=== PATIENT | male | born 1965 | race Two or more races ===

== ENCOUNTER 2022-09-21 06:37 | Inpatient (IN) | payer MEDICAID, OTHER ==
[~2022-09-21] VITALS: Ht 157.5 cm; Wt 626.0 kg
--- NOTE | 2022-09-21 06:41 | NUR ---
[id number] FROM [facility] FOR [facility] THE [facility]S. VENT DEPENDENT CAME IN ON BVM SATTING 100%. PATIENT NON VERBAL, PLACED IN BED 08 ON MONITOR AND POX. RT CALLED, MADE AWARE.
--- NOTE | 2022-09-21 06:53 | NUR ---
RT AT BEDSIDE
--- NOTE | 2022-09-21 06:54 | NUR ---
COVID SWAB DONE AND SENT TO LAB
--- NOTE | 2022-09-21 06:54 | NUR ---
CONKLIN CATHETER PLACED BUT NO URINE OUTPUT YET.
--- NOTE | 2022-09-21 06:54 | NUR ---
Mery cassidy in [facility] - 09/21/22 at 0713 by KYA URINE COLLECTED AND SENT TO LAB
--- NOTE | 2022-09-21 06:54 | NUR ---
RAPID FLU DONE AND SENT TO LAB
--- NOTE | 2022-09-21 06:54 | NUR ---
BLOOD COLLECTED AND SENT TO LAB
--- NOTE | 2022-09-21 06:55 | NUR ---
BLOOD CULTURES COLLECTED AND SENT TO LAB
[2022-09-21] MEDS ORDERED: methylPREDNISolone SOD SUCC 125 MG/2ML VIAL ONE (06:58)
[2022-09-21] MEDS ORDERED: Magnesium 1GM/D5W 100ML PREMIX 100 ML IV ONE ×2 (06:58→09:04)
[2022-09-21] MEDS ORDERED: methylPREDNISolone SOD SUCC 125 MG/2ML VIAL IV ONE (07:00)
[2022-09-21] MEDS ORDERED: ALBUTEROL FS 2.5 MG/3 ML VIAL.NEB NEB ONE (07:00)
[2022-09-21] MEDS ORDERED: IPRATROPIUM NEB FS 0.5 MG/2.5 ML AMPUL.NEB NEB ONE (07:00)
[2022-09-21] MEDS ORDERED: IPRATROPIUM NEB FS 0.5 MG/2.5 ML AMPUL.NEB ONE (07:02)
[2022-09-21] MEDS ORDERED: ALBUTEROL FS 2.5 MG/3 ML VIAL.NEB ONE (07:02)
[2022-09-21] MEDS: Magnesium 1GM/D5W 100ML PREMIX 100 ML IV SCH ×2 (07:13→08:30)
--- NOTE | 2022-09-21 07:14 | NUR ---
XRAY AT BEDSIDE
--- NOTE | 2022-09-21 07:15 | NUR ---
VENT SETTINGS: MODE: SIMV VC FIO2: 40% VT: 450 RATE: 14 TINSP: 1.0 PEEP: 5 PS: 12
--- NOTE | 2022-09-21 07:16 | NUR ---
PT ADMITTED VIA GURNEY BAGGING BY EMT. PT PLACED INTO MECHANICAL VENT VIA TRACH SIZE 7 XLT DISTAL WITH VENT SETTINGS BELOW PER EMT TRANSPORT: SIMV14 VT 450 ML FIO2 40% PS 12 PEEP +5 BREATH SOUNDS DIMINISHED TO WHEEZING BILATERAL, SXN SMALL MUCUS PLUGGED ASCENCIO COLOR THICK SECRETIONS. VENT PLUGGED INTO RED OUTLET WITH ALARMS ON AND FUNCTIONING. BVM AND SPARE TRACH @ BEDSIDE. Addendum: 09/21/22 at 0723 by VIRGEN ALAS RT Amended: Links added.
--- NOTE | 2022-09-21 07:25 | NUR ---
ULTRASOUND AT BEDSIDE
[2022-09-21 07:27] LABS: BASOPHILS # (AUTO) 0.1 K/uL (0.0-0.2); BASOPHILS % (AUTO) 0.2 % (0.0-2.0); EOSINOPHILS % (AUTO) 1.7 % (0.0-6.0); HEMATOCRIT 33 % (39-51); HEMOGLOBIN 9.8 g/dL (13.5-17.5); LYMPHOCYTES % (AUTO) 7.1 % (20.0-44.0); MEAN CORPUSCULAR HGB CONC 30 g/dl (31.0-36.0); MEAN CORPUSCULAR VOLUME 85 fL (80-96); MONOCYTES % (AUTO) 7.1 % (2.0-12.0); NEUTROPHILS # (AUTO) 23.6 K/uL (1.8-8.9); NEUTROPHILS % (AUTO) 83.9 % (43.0-81.0); PLATELET COUNT (AUTO) 302 K/uL (150-450); RED BLOOD CELL COUNT(AUTO) 3.89 MIL/uL (4.5-6.0); WHITE BLOOD COUNT (AUTO) 28.1 K/uL (4.3-11.0)
[2022-09-21 07:33] LABS: CALCIUM, SERUM 9.6 mg/dL (8.5-10.1); CARBON DIOXIDE 30 mmol/L (21-32); CHLORIDE 98 mmol/L (98-107); CREATININE 0.9 mg/dL (0.6-1.3); GLUCOSE 191 mg/dL (74-106); POTASSIUM 4.7 mmol/L (3.5-5.1); SODIUM SERUM 135 mmol/L (136-145); UREA NITROGEN, BLOOD 22 mg/dL (7-18)
[2022-09-21 07:39] LABS: ALANINE AMINOTRANSFERASE 22 U/L (12-78); ALBUMIN 2.9 g/dL (3.4-5.0); ALKALINE PHOSPHATASE 111 U/L (46-116); ASPARTATE AMINOTRANSFERASE 21 U/L (15-37); BILIRUBIN,DIRECT 0.2 mg/dL (0.0-0.2); BILIRUBIN,TOTAL 0.4 mg/dL (0.2-1.0); TOTAL PROTEIN, SERUM 10.2 g/dL (6.4-8.2)
[2022-09-21] MEDS ORDERED: VANCOMYCIN HCL 1.25 GM in IV D5W 260 ML IV ONE (08:00)
[2022-09-21] MEDS ORDERED: VANCOMYCIN HCL 1 GM in IV D5W 260 ML IV ONE (08:00)
[2022-09-21] MEDS ORDERED: PIPERACILLIN /TAZOBACTAM 3.375 G in IV D5W 50 ML IV ONE (08:00)
--- NOTE | 2022-09-21 08:23 | NUR ---
PT TAKEN TO CT VIA LARISA ACCOMPANIED BY RN AND RT
[2022-09-21] MEDS ORDERED: IV NS 0.9% 1,000 ML IV ONE (08:30)
--- NOTE | 2022-09-21 09:02 | NUR ---
BED GIVEN 112-2
[2022-09-21] MEDS ORDERED: EPOE1VIA7 SQ (09:26)
[2022-09-21] MEDS ORDERED: CLON1TAB12 GT (09:26)
[2022-09-21] MEDS ORDERED: ACET650S26 GT (09:26)
[2022-09-21] MEDS ORDERED: MAGN400O6 GT (09:26)
[2022-09-21] MEDS ORDERED: BISA10SU11 RC (09:26)
[2022-09-21] MEDS ORDERED: ACET-2605 GT (09:26)
[2022-09-21] MEDS ORDERED: METO25TA20 GT (09:26)
[2022-09-21] MEDS ORDERED: QUET25TA GT (09:26)
[2022-09-21] MEDS ORDERED: LACT100027 GT (09:26)
[2022-09-21] MEDS ORDERED: DOCU-141 GT (09:26)
[2022-09-21] MEDS ORDERED: CHOL100043 GT (09:26)
[2022-09-21] MEDS ORDERED: ASCO-340 GT (09:26)
[2022-09-21] MEDS ORDERED: DILT30TA14 GT (09:26)
[2022-09-21] MEDS ORDERED: CHLO473M5 MM (09:26)
[2022-09-21] MEDS ORDERED: ALBU8.5H8 IH ×2 (09:26)
[2022-09-21] MEDS ORDERED: FERR300L GT (09:26)
[2022-09-21] MEDS ORDERED: TRAM50TA2 GT (09:26)
--- NOTE | 2022-09-21 09:48 | NUR ---
report given to Tamiko MANJARREZ
--- NOTE | 2022-09-21 10:00 | NUR ---
RECEIVED PATIENT FROM ER, EYES OPEN, OBTUNDED. TRACH WITH VENT AT AC 14 FIO2 40%. TIDAL [id number] AND FOUNDRY WORKER WITH T AND P WAVE ELEVATION. IV ON RIGHT UPPER ARM G 22, RIGHT AC G20, LEFT HAND G20 PATENT. INFUSING VANCOMYCIN 1 GM IVPG AT 125ML/HR AND NORMAL SALINE BY GRAVITY. GT IN PLACE WITH GT STOMA IS BIG AND EXCORIATED AREA WITH MINIMAL LEAKAGE. CONKLIN CATHETER WITH YELLLOW URINE. [id number]. RIGHT HEEL WITH BLACK ESCHAR. BILATERAL GROIN IRRITATED RED EXCORIATED AREA, BUTTOCKS AND SACRAL, BILATERAL GROIN AND RIGHT HIP AREA RASH.
[2022-09-21 10:10] VITALS: BP 118/67
--- NOTE | 2022-09-21 10:27 | NUR ---
PT. TRANSFERRED FROM ER TO 112-1. PT USING SAME MECHANICAL VENTILATOR AND PLUGGED INTO RED OUTLET. BVM @ BEDSIDE Addendum: 09/21/22 at 1029 by VIRGEN ALAS RT Amended: Links added.
--- NOTE | 2022-09-21 10:54 | NUR ---
dr. pavel blair for admitting orders.
[2022-09-21 10:58] LABS: BILIRUBIN,URINE NEGATIVE (NEGATIVE); COLOR,URINE YELLOW (YELLOW); LEUKOCYTE ESTERASE ,URINE 1+ (NEGATIVE); NITRITE, URINE NEGATIVE (NEGATIVE); PROTEIN,URINE 2+ mg/dl (NEGATIVE); UGLUCOSE NEGATIVE (NEGATIVE); UROBILINOGEN,URINE 0.2 EU/dL (0.2)
[2022-09-21] MEDS ORDERED: ACETAMINOPHEN 650 MG/20.3 ML UDC GT PRN (11:30)
[2022-09-21] MEDS ORDERED: ONDANSETRON HCL/PF 4 MG/2 ML VIAL IVP PRN (11:30)
[2022-09-21] MEDS ORDERED: MAGNESIUM HYDROXIDE 30 ML UDC GT PRN (11:30)
[2022-09-21] MEDS ORDERED: ALBUTEROL SULFATE 8 GM HFA.AER.AD IH PRN (11:30)
[2022-09-21] MEDS ORDERED: MORPHINE SULFATE INJ 2 MG/ML DISP.SYRIN IV PRN (11:30)
[2022-09-21] MEDS ORDERED: ZOLPIDEM TARTRATE 5 MG TABLET PO PRN (11:30)
[2022-09-21] MEDS ORDERED: Z GUARD REMEDY 4 OZ OINT TP PRN (11:30)
[2022-09-21 11:37] LABS: BACTERIA,URINE Moderate /HPF (None Seen); SQUAMOUS EPITHELIAL CELL,UR Few /HPF (None Seen); WBC,URINE TOO NUMEROUS TO COUN /HPF (0-3)
[2022-09-21 11:38] LABS: HYALINE CASTS, URINE Few /LPF (None Seen)
[2022-09-21 12:00] VITALS: BP_SYST 118; BP_SYST 140; BP_DIAS 67; BP_DIAS 80
[2022-09-21] MEDS: ENOXAPARIN SODIUM 40 MG/0.4 ML DISP.SYRIN SQ SCH (12:25)
[2022-09-21] MEDS: TRAMADOL HCL 50 MG TABLET GT SCH ×2 (12:26→22:12)
[2022-09-21] MEDS: DILTIAZEM HCL 30 MG TABLET GT SCH ×3 (12:27→23:36)
[2022-09-21] MEDS: CEFEPIME 2 GM in IV D5W 100 ML IV SCH ×2 (13:15→22:13)
[2022-09-21] MEDS: IV NS 0.9% 1,000 ML IV PRN (13:17)
[2022-09-21 16:00] VITALS: BP 116/72
[2022-09-21] MEDS: METOPROLOL TARTRATE 25 MG TABLET GT SCH (17:47)
--- NOTE | 2022-09-21 18:45 | NUR ---
RN CLOSING NOTE: OBTUNDED. TRACH AND VENT WORKING AT PRESCRIBED SETTINGS, SATING AT 100. SCADA ENGINEER SINUS RHYTHM 76. IV ON RIGHT UPPER ARM, RT AC, AND LEFT HAND INTACT, PATENT. NO S/S OF COMPLICATIONS. TOTAL CARE PROVIDED. TURNED AND REPOSITIONED. GT PATENT. CONKLIN WITH YELLOW URINE. KEPT CLEAN AND COMFORTABLE. NO S/S OF PAIN OR DISCOMFORT. HOB ELEVATED SEMI-FOWLERS POSITION. BILATERAL HALF SIDE RAILS UPX2. BED IS LOCKED, IN LOW POSITION, EXIT ALARM ON. CALL LIGHT IN REACH.
[2022-09-21 20:00] VITALS: BP 101/63
[2022-09-21] MEDS: CLOTRIMAZOLE 1% 15 GM TUBE TP SCH (21:00)
[2022-09-21] MEDS: DOCUSATE SODIUM 100 MG CAPSULE PO SCH (22:12)
[2022-09-21] MEDS: clonazePAM 1 MG TABLET GT SCH (22:12)
[2022-09-21] MEDS: VANCOMYCIN HCL 0.75 GM in IV D5W 250 ML IV SCH (23:32)
[2022-09-22] VITALS: BP 102/65
--- NOTE | 2022-09-22 03:24 | NUR ---
ptrthand ivinfiltrated .request to have ml placed. hand elevated on pillow.reported to charge nurse
[2022-09-22 04:00] VITALS: BP 102/65
[2022-09-22] MEDS: TRAMADOL HCL 50 MG TABLET GT SCH ×3 (06:46→21:11)
[2022-09-22] MEDS: CEFEPIME 2 GM in IV D5W 100 ML IV SCH ×3 (06:49→21:11)
[2022-09-22] MEDS: DILTIAZEM HCL 30 MG TABLET GT SCH ×3 (06:49→17:25)
--- NOTE | 2022-09-22 07:00 | NUR ---
ATMOSPHERIC CHEMIST OPENING NOTES: RECEIVED PT IN BED ASLEEP, EASILY AROUSED WITH STIMULI.NO SOB OR CARDIAC DISTRESS NOTED. PT ON ON MECHANICAL VENT, WITH CURRENT SETTING OF 450,TV 14, FI02 40% SHILEY #7 AND TOLERATING WELL. ON PERMIT COORDINATOR WITH CURRENT READING OF SR @76BPM. WITH IV ACCESS ON LEFT HAND GAUGE 20,SANDY GAUGE 20 PATENT, INTACT AND INFUSING NS @120ML/HR. SAFETY MEASURES MAINTAINED. BED LOCKED AND IN LOWEST POSITION, SIDE RAILS UP X2 CALL LIGHT IN EASY REACH FOR HELP. WILL MONITOR ACCORDINGLY.
[2022-09-22 07:44] LABS: CALCIUM, SERUM 9.7 mg/dL (8.5-10.1); CREATININE 0.7 mg/dL (0.6-1.3); MAGNESIUM 2.5 mg/dL (1.8-2.4); POTASSIUM 4.5 mmol/L (3.5-5.1)
[2022-09-22 08:00] VITALS: BP 118/59
--- NOTE | 2022-09-22 08:15 | NUR ---
RN NOTES: RECEIVED A CALL FROM RENÉ, PT IS GRAM POSITIVE COCCI, PT CURRENTLY ON IV ATB.
[2022-09-22] MEDS: VANCOMYCIN HCL 0.75 GM in IV D5W 250 ML IV SCH ×2 (08:19→21:11)
[2022-09-22] MEDS: DOCUSATE SODIUM 100 MG CAPSULE PO SCH (08:20)
[2022-09-22] MEDS: PANTOPRAZOLE 40 MG VIAL IV SCH (08:20)
[2022-09-22] MEDS: METOPROLOL TARTRATE 25 MG TABLET GT SCH ×2 (08:26→16:52)
[2022-09-22] MEDS: clonazePAM 1 MG TABLET GT SCH ×2 (08:27→21:12)
[2022-09-22] MEDS: QUETIAPINE FUMARATE 25 MG TABLET GT SCH (08:27)
[2022-09-22 09:07] LABS: BASOPHILS % (AUTO) 0.1 % (0.0-2.0); HEMATOCRIT 31 % (39-51); HEMOGLOBIN 9.6 g/dL (13.5-17.5); LYMPHOCYTES # (AUTO) 0.5 K/uL (0.8-4.8); LYMPHOCYTES % (AUTO) 5.6 % (20.0-44.0); MEAN CORPUSCULAR HGB CONC 31 g/dl (31.0-36.0); MEAN CORPUSCULAR VOLUME 83 fL (80-96); MONOCYTES # (AUTO) 0.8 K/uL (0.1-1.30); MONOCYTES % (AUTO) 8.8 % (2.0-12.0); NEUTROPHILS # (AUTO) 7.9 K/uL (1.8-8.9); NEUTROPHILS % (AUTO) 85.5 % (43.0-81.0); PLATELET COUNT (AUTO) 190 K/uL (150-450); RED BLOOD CELL COUNT(AUTO) 3.77 MIL/uL (4.5-6.0); WHITE BLOOD COUNT (AUTO) 9.2 K/uL (4.3-11.0)
[2022-09-22] MEDS: CLOTRIMAZOLE 1% 15 GM TUBE TP SCH ×2 (09:27→21:14)
[2022-09-22] MEDS: Z GUARD REMEDY 4 OZ OINT TP SCH (09:28)
[2022-09-22] MEDS ORDERED: TWOCAL HN 1,000 ML LIQUID GT PRN ×2 (10:30→14:30)
--- NOTE | 2022-09-22 11:28 | NUR ---
WOUND CARE CONSULT: PT PRESENTS WITH REDNESS AROUND G TUBE SITE, SOME AREAS OF DISCOLORATION TO BACK AND BUTTOCKS, SACRAL SCARRING AND LEFT HEEL INTACT DEEP TISSUE INJURY, ALL PRESENT ON ADMISSION. DPM CONSULT REQUESTED FROM DR RASHID. DISCUSSED SKIN PROTECTION RECOMMENDATIONS WITH NURSING STAFF. MD IN AGREEMENT WITH PLAN OF CARE.
[2022-09-22] MEDS: ENOXAPARIN SODIUM 40 MG/0.4 ML DISP.SYRIN SQ SCH (11:44)
[2022-09-22 12:00] VITALS: BP 110/67
--- NOTE | 2022-09-22 12:00 | NUR ---
RN NOTES: INFILTRATED IV ACCESS ON SANDY AND RAC. REMOVED IV ACCESS.
--- NOTE | 2022-09-22 13:00 | NUR ---
RN NOTES: MIDLINE GAUGE 20 INSERTED BY CHASIDY NÚÑEZ PT TOLERATED WELL.
[2022-09-22] MEDS: TWOCAL HN 1,000 ML LIQUID GT PRN (14:28)
--- NOTE | 2022-09-22 14:30 | NUR ---
RN NOTES: PT STARTED GT TUBE FEEDING TWO TAMIKO HN @ 25ML/HR AND GOAL 45ML/HR. PT ANDREAS WELL.
[2022-09-22 16:00] VITALS: BP 103/59
[2022-09-22] MEDS: IV NS 0.9% 1,000 ML IV PRN (17:34)
--- NOTE | 2022-09-22 18:49 | NUR ---
BODY AND FRAME MAN CLOSING NOTES: PT IN BED ASLEEP, EASILY AROUSED WITH STIMULI.NON VERBAL. NO SOB OR CARDIAC DISTRESS NOTED. PT ON ON MECHANICAL VENT, WITH CURRENT SETTING OF 450,TV 14, FI02 40% SHILEY #7 AND TOLERATING WELL. ON CORSETIER WITH CURRENT READING OF SR @91 BPM WITH ELEVATED T WAVE. WITH IV ACCESS ON LEFT HAND GAUGE 20,MAX MIDLINE GAUGE 20 PATENT, INTACT AND INFUSING NS @120ML/HR. ON G TUBE FEEDING TWO TAMIKO HN @ 45ML/HR X 20 HOURS. SAFETY MEASURES MAINTAINED. BED LOCKED AND IN LOWEST POSITION, SIDE RAILS UP X2 CALL LIGHT IN EASY REACH FOR HELP. WILL MONITOR ACCORDINGLY. ENDORSED TO INSTALLATION TECH RN FOR CONTINUITY OF CARE.
[2022-09-22 20:00] VITALS: BP 112/60
[2022-09-23] VITALS: BP 136/75
[2022-09-23 04:00] VITALS: BP 136/70
[2022-09-23] MEDS: TRAMADOL HCL 50 MG TABLET GT SCH ×3 (05:28→21:14)
[2022-09-23] MEDS: CEFEPIME 2 GM in IV D5W 100 ML IV SCH ×3 (05:29→21:13)
[2022-09-23 06:48] LABS: BASOPHILS % (AUTO) 0.2 % (0.0-2.0); EOSINOPHILS % (AUTO) 0.1 % (0.0-6.0); HEMATOCRIT 30 % (39-51); HEMOGLOBIN 9.2 g/dL (13.5-17.5); LYMPHOCYTES # (AUTO) 0.6 K/uL (0.8-4.8); LYMPHOCYTES % (AUTO) 6.9 % (20.0-44.0); MEAN CORPUSCULAR HGB CONC 31 g/dl (31.0-36.0); MEAN CORPUSCULAR VOLUME 83 fL (80-96); MONOCYTES # (AUTO) 0.8 K/uL (0.1-1.30); MONOCYTES % (AUTO) 8.6 % (2.0-12.0); NEUTROPHILS # (AUTO) 7.8 K/uL (1.8-8.9); NEUTROPHILS % (AUTO) 84.2 % (43.0-81.0); PLATELET COUNT (AUTO) 136 K/uL (150-450); RED BLOOD CELL COUNT(AUTO) 3.59 MIL/uL (4.5-6.0); WHITE BLOOD COUNT (AUTO) 9.2 K/uL (4.3-11.0)
--- NOTE | 2022-09-23 07:15 | NUR ---
ONCOLOGY NURSE NAVIGATOR OPENING NOTE PT IN BED ASLEEP, EASILY AROUSED WITH STIMULI, NON VERBAL. NO SOB OR CARDIAC DISTRESS NOTED. PT HS TRACH COLLAR, ON MECHANICAL VENT, TOLERATING WELL. EXTERNAL WASHING MACHINE OPERATOR SHOWS SR. IV ACCESS ON LEFT HAND GAUGE 20, MAX MIDLINE GAUGE 20 PATENT, INTACT. G TUBE FEEDING TWO TAMIKO HN @ 45ML/HR X 20 HOURS. SAFETY MEASURES MAINTAINED. BED LOCKED AND IN LOWEST POSITION, SIDE RAILS UP X2 CALL LIGHT IN EASY REACH FOR HELP. WILL MONITOR ACCORDINGLY.
[2022-09-23 07:20] LABS: CALCIUM, SERUM 9.2 mg/dL (8.5-10.1); CREATININE 0.8 mg/dL (0.6-1.3); POTASSIUM 3.7 mmol/L (3.5-5.1)
[2022-09-23 08:00] VITALS: BP 137/72
[2022-09-23] MEDS: VANCOMYCIN HCL 0.75 GM in IV D5W 250 ML IV SCH ×2 (08:07→21:13)
[2022-09-23] MEDS: DOCUSATE SODIUM LIQ 100 MG/10 ML UDC GT SCH ×2 (08:39→17:20)
[2022-09-23] MEDS: QUETIAPINE FUMARATE 25 MG TABLET GT SCH (08:40)
[2022-09-23] MEDS: Z GUARD REMEDY 4 OZ OINT TP SCH (08:41)
[2022-09-23] MEDS: CLOTRIMAZOLE 1% 15 GM TUBE TP SCH ×2 (08:41→21:14)
[2022-09-23] MEDS: PANTOPRAZOLE 40 MG VIAL IV SCH (08:41)
[2022-09-23] MEDS: METOPROLOL TARTRATE 25 MG TABLET GT SCH ×2 (08:50→17:20)
[2022-09-23] MEDS: clonazePAM 1 MG TABLET GT SCH ×2 (08:55→21:15)
[2022-09-23] MEDS: ENOXAPARIN SODIUM 40 MG/0.4 ML DISP.SYRIN SQ SCH (11:40)
[2022-09-23] MEDS: DILTIAZEM HCL 30 MG TABLET GT SCH ×4 (11:48→23:39)
[2022-09-23 12:00] VITALS: BP 137/63
[2022-09-23 16:00] VITALS: BP 122/76
--- NOTE | 2022-09-23 19:21 | NUR ---
FIBER ANALYST CLOSING NOTE: PT IN BED ASLEEP, EASILY AROUSED WITH STIMULI, NON VERBAL. NO SOB OR CARDIAC DISTRESS NOTED. PT HS TRACH COLLAR, ON MECHANICAL VENT, TOLERATING WELL. EXTERNAL SCRAP BREAKER SHOWS SR. IV ACCESS ON LEFT HAND GAUGE 20, MAX MIDLINE INTACT, FLUSHES WELL. G TUBE FEEDING TWO TAMIKO HN @ 45ML/HR X 20 HOURS. SAFETY MEASURES MAINTAINED. BED LOCKED AND IN LOWEST POSITION, SIDE RAILS UP X2.
[2022-09-23 20:00] VITALS: BP 110/70
[2022-09-24] VITALS: BP 125/72
[2022-09-24 04:00] VITALS: BP 126/70
[2022-09-24] MEDS: TRAMADOL HCL 50 MG TABLET GT SCH ×3 (05:00→20:10)
[2022-09-24] MEDS: CEFEPIME 2 GM in IV D5W 100 ML IV SCH ×3 (06:06→21:05)
[2022-09-24] MEDS: DILTIAZEM HCL 30 MG TABLET GT SCH ×3 (06:30→17:01)
[2022-09-24 07:20] LABS: CALCIUM, SERUM 9.4 mg/dL (8.5-10.1); CREATININE 0.7 mg/dL (0.6-1.3); POTASSIUM 3.8 mmol/L (3.5-5.1)
--- NOTE | 2022-09-24 07:59 | NUR ---
RN OPENING NOTE PATIENT AWAKE IN BED RESTING, A/O X 0, NON-VERBAL. NO S/S OF PAIN NOTED AT THIS TIME. ON VENT, TOLERATING SETTING WELL AT PRESCRIBED SETTINGS, NO DISTRESS NOTED. IV ACCESS MAX MIDLINE, INTACT, PATENT AND FLUSHING WELL. PATIENT ON EXTERNAL LINSEED OIL TEMPERER WITH CURRENT READING OF SR AND HR OF 78, NO CARDIAC DISTRESS NOTED. PATIENT HAVE A CONKLIN CATHETER IN PLACE AND DRAINING WELL. FALL AND SAFETY MEASURES IN PLACE, BED ALARM ON, BED IN LOW AND LOCK POSITION, CALL LIGHT AND TABLE WITHIN EASY REACH, SIDE RAILS UP X2. WILL CONTINUE TO MONITOR.
[2022-09-24 08:00] VITALS: BP 159/85
--- NOTE | 2022-09-24 08:07 | NUR ---
cxr result relayed to dr. zhao no new orders.
[2022-09-24] MEDS: CLOTRIMAZOLE 1% 15 GM TUBE TP SCH ×2 (08:50→20:10)
[2022-09-24] MEDS: PANTOPRAZOLE 40 MG/PACK PACK GT SCH (08:50)
[2022-09-24] MEDS: DOCUSATE SODIUM LIQ 100 MG/10 ML UDC GT SCH ×2 (08:50→17:00)
[2022-09-24] MEDS: VANCOMYCIN HCL 0.75 GM in IV D5W 250 ML IV SCH ×2 (08:58→20:09)
[2022-09-24] MEDS: clonazePAM 1 MG TABLET GT SCH ×2 (08:59→20:09)
[2022-09-24] MEDS: METOPROLOL TARTRATE 25 MG TABLET GT SCH ×2 (08:59→17:01)
[2022-09-24] MEDS: Z GUARD REMEDY 4 OZ OINT TP SCH (09:00)
[2022-09-24] MEDS: IV NS 0.9% 1,000 ML IV PRN (09:27)
[2022-09-24 12:00] VITALS: BP 150/85
[2022-09-24] MEDS: ENOXAPARIN SODIUM 40 MG/0.4 ML DISP.SYRIN SQ SCH (12:08)
[2022-09-24] MEDS: ACETYLCYSTEINE 10% SOLN 400 MG/4 ML VIAL NEB SCH ×2 (15:35→23:27)
[2022-09-24 16:00] VITALS: BP 153/83
--- NOTE | 2022-09-24 17:37 | NUR ---
RECEIVED PATIENT ON SIMV 14, VT 450, FIO2 40%, PEEP 5, PS 12. HAS A TRACH SHILEY 7 XLT CUFFED. AIRWAY PATENT AND SECURE. Q2 VENT CHECK, SUCTION PRN. AMBU BAG AND EMERGENCY TRACH AT THE BEDSIDE. VENT PLUGGED INTO RED OUTLET. ALARMS SET AND AUDIBLE.
--- NOTE | 2022-09-24 18:32 | NUR ---
RN CLOSING NOTE PATIENT AWAKE IN BED RESTING, A/O X 0, NON-VERBAL. NO S/S OF PAIN NOTED AT THIS TIME. ON VENT, TOLERATING SETTING WELL AT PRESCRIBED SETTINGS, NO DISTRESS NOTED. IV ACCESS MAX MIDLINE, INTACT, PATENT AND FLUSHING WELL, RUNNING NS @ 75ML/HR. PATIENT ON EXTERNAL CHROME WORKER WITH CURRENT READING OF SR AND HR OF 68, NO CARDIAC DISTRESS NOTED. PATIENT HAVE A CONKLIN CATHETER IN PLACE AND DRAINING WELL, OUTPUT 700ML. PATIENT HAVE A G-TUBE, FEEDING RUNNING TWOCAL HN LIQUID @ 45 ML/HRS X 20 HRS. SCHEDULE MEDICATIONS ADMINISTERED. PATIENT WAS TURNED AND REPOSITIONED PER PROTOCOL. SKIN/WOUND CARE IMPLEMENTED. ALL NEEDS ATTENDED AND ANTICIPATED. FALL AND SAFETY MEASURES IN PLACE, BED ALARM ON, BED IN LOW AND LOCK POSITION, CALL LIGHT AND TABLE WITHIN EASY REACH, SIDE RAILS UP X2. WILL ENDORSE TO EMPLOYEE RELATIONS ADVISOR NURSE.
--- NOTE | 2022-09-24 19:30 | NUR ---
PROVIDER NETWORK MGR OPENING NOTE RECEIVED PT IN BED ASLEEP, EASILY AROUSED WITH STIMULI, NON VERBAL. PT HS TRACH COLLAR, ON MECHANICAL VENT, TOLERATING WELL. NO SOB; NO S/SX OF ACUTE RESPI DISTRESS NOTED AT THIS TIME. EXTERNAL SWIMMING POOL INSTALLER SHOWS SR, HR IN 60s.IV ACCESS ON MAX MIDLINE #20g, RUNNING NS @ 75 CC/HR AND SANDY ML, SL ONLY. BOTH ARE PATENT AND INTACT. G TUBE FEEDING TWO TAMIKO HN @ 45ML/HR X 20 HOURS ALSO NOTED. CONKLIN CATH IN PLACE DRAINING YELLOW URINE BY GRAVITY. ALL SAFETY MEASURES IN PLACE: BED LOCKED AND IN LOWEST POSITION, SIDE RAILS UP X2, CALL LIGHT WITHIN EASY REACH FOR HELP. WILL CONTINUE TO MONITOR ACCORDINGLY.
[2022-09-24 20:00] VITALS: BP 116/64
--- NOTE | 2022-09-24 21:30 | NUR ---
RN NOTE GTUBE FEEDING STOPPED PER MD ORDER. (45 CC/HR X 20 HRS ONLY). WILL TURN BACK ON AFTER 4 HRS @ 0130.
[2022-09-25] VITALS: BP 125/69
[2022-09-25] MEDS: IV NS 0.9% 1,000 ML IV PRN ×2 (01:36→16:43)
[2022-09-25 04:00] VITALS: BP 130/70
[2022-09-25] MEDS: CEFEPIME 2 GM in IV D5W 100 ML IV SCH ×3 (04:43→21:02)
[2022-09-25] MEDS: TRAMADOL HCL 50 MG TABLET GT SCH ×3 (04:43→21:06)
[2022-09-25] MEDS: DILTIAZEM HCL 30 MG TABLET GT SCH ×4 (05:16→17:06)
--- NOTE | 2022-09-25 06:17 | NUR ---
RN NOTE PT REMAINED STABLE T/O THE NIGHT. ALL VS STABLE. DUE MEDS GIVEN. NEEDS ATTENDED TO. PM CARE DONE. TURNED AND REPOSITIONED. WILL ENDORSE TO AM SHIFT NURSE FOR HONG.
[2022-09-25] MEDS: TWOCAL HN 1,000 ML LIQUID GT PRN (06:30)
[2022-09-25 07:02] LABS: CALCIUM, SERUM 8.5 mg/dL (8.5-10.1); CREATININE 0.6 mg/dL (0.6-1.3); POTASSIUM 3.3 mmol/L (3.5-5.1)
--- NOTE | 2022-09-25 07:30 | NUR ---
AIRCRAFT ASSEMBLER AM NOTE RECEIVED PT IN BED ASLEEP, NON VERBAL, OPENS EYES, WITH SHILEY 7 TRACH TO MECHANICAL VENT WITH SETTINGS ORDERED AC 14 TV 450 FIO2 40% PEEP5, TOLERATING WELL, BREATHING EVEN AND UNLABORED. O2 SAT 100%, SR HR 74, NO SIGNS OF PAIN/DISCOMFORT, SANDY MIDLINE IN PLACE, FLUSHES WELL, MAX MIDLINE WITH NS AT 75 ML/HR INFUSING WELL, BOTH SITES CLEAR. SEE NURSING FLOWSHEET FOR SKIN ISSUES. G TUBE FEEDING TWO TAMIKO HN @ 45ML/HR X 20 HOURS ON 129 OFF 2129, CHECKED FOR PLACEMENT, 10 ML RESIDUAL. CONKLIN CATH IN PLACE DRAINING YELLOW URINE BY GRAVITY. ALL SAFETY MEASURES IN PLACE: HOB UP X 30 DEG. BED LOCKED AND IN LOWEST POSITION, SIDE RAILS UP X2, CALL LIGHT WITHIN EASY REACH FOR HELP. WILL CONTINUE TO MONITOR ACCORDINGLY.
[2022-09-25 08:00] VITALS: BP 120/64
[2022-09-25] MEDS: ACETYLCYSTEINE 10% SOLN 400 MG/4 ML VIAL NEB SCH ×3 (08:17→23:22)
[2022-09-25] MEDS: VANCOMYCIN HCL 0.75 GM in IV D5W 250 ML IV SCH ×2 (08:41→19:57)
[2022-09-25] MEDS: DOCUSATE SODIUM LIQ 100 MG/10 ML UDC GT SCH ×2 (08:41→17:03)
[2022-09-25] MEDS: PANTOPRAZOLE 40 MG/PACK PACK GT SCH (08:43)
[2022-09-25] MEDS: METOPROLOL TARTRATE 25 MG TABLET GT SCH ×2 (08:43→17:06)
[2022-09-25] MEDS: clonazePAM 1 MG TABLET GT SCH ×2 (08:44→21:06)
[2022-09-25] MEDS: Z GUARD REMEDY 4 OZ OINT TP SCH (08:44)
[2022-09-25] MEDS: QUETIAPINE FUMARATE 25 MG TABLET GT SCH (08:44)
[2022-09-25] MEDS: CLOTRIMAZOLE 1% 15 GM TUBE TP SCH ×2 (08:44→21:02)
--- NOTE | 2022-09-25 09:30 | NUR ---
RN NOTES DUE MEDS GIVEN
[2022-09-25] MEDS: ENOXAPARIN SODIUM 40 MG/0.4 ML DISP.SYRIN SQ SCH (11:26)
[2022-09-25 12:00] VITALS: BP 136/64
[2022-09-25] MEDS ORDERED: POTASSIUM CHLORIDE 20 MEQ POWDER PACKET NG SCH (12:00)
[2022-09-25 16:00] VITALS: BP 130/60
--- NOTE | 2022-09-25 18:37 | NUR ---
LOGISTICS MANAGEMENT SPECIALIST CLOSING NOTE PT IN BED ASLEEP, NON VERBAL, OPENS EYES, WITH SHILEY 7 TRACH TO MECHANICAL VENT WITH SETTINGS ORDERED AC 14 TV 450 FIO2 40% PEEP5, TOLERATING WELL, BREATHING EVEN AND UNLABORED. O2 SAT 100%, SR HR 84, NO SIGNS OF PAIN/DISCOMFORT, SANDY MIDLINE IN PLACE, FLUSHES WELL, MAX MIDLINE WITH NS AT 75 ML/HR INFUSING WELL, BOTH SITES CLEAR. G TUBE FEEDING TWO TAMIKO HN @ 45ML/HR X 20 HOURS ON 129 OFF 2129, CHECKED FOR PLACEMENT, 10 ML RESIDUAL. CONKLIN CATH IN PLACE DRAINING YELLOW URINE BY GRAVITY. ALL SAFETY MEASURES IN PLACE: HOB UP X 30 DEG. BED LOCKED AND IN LOWEST POSITION, SIDE RAILS UP X2, CALL LIGHT WITHIN EASY REACH FOR HELP. ALL NEEDS MET. PM CARE AND WOUND CARE DONE EARLIER. TURNED AND REPOSITIONED Q 2 HOURS. WILL ENDORSE TO NEXT SHIFT FOR HONG.
--- NOTE | 2022-09-25 19:30 | NUR ---
MERCERIZER NOTE PT IN BED ASLEEP, NON VERBAL, OPENS EYES, WITH SHILEY 7 TRACH TO MECHANICAL VENT WITH SETTINGS ORDERED AC 14 TV 450 FIO2 40% PEEP5, TOLERATING WELL, BREATHING EVEN AND UNLABORED. O2 SAT 100%, SR , NO SIGNS OF PAIN/DISCOMFORT, SANDY MIDLINE IN PLACE, FLUSHES WELL, MAX MIDLINE WITH NS AT 75 ML/HR INFUSING WELL, BOTH SITES CLEAR. G TUBE FEEDING TWO TAMIKO HN @ 45ML/HR X 20 HOURS ON 129 OFF 2129. CONKLIN CATH IN PLACE DRAINING YELLOW URINE BY GRAVITY. ALL SAFETY MEASURES IN PLACE: HOB ELEVATED FOR SAFETY. BED LOCKED AND IN LOWEST POSITION, SIDE RAILS UP X2, CALL LIGHT WITHIN EASY REACH FOR HELP. ALL NEEDS MET. TURNED AND REPOSITIONED QH2 HOURS.
[2022-09-25 20:00] VITALS: BP 141/75
[2022-09-26] VITALS: BP 105/75
[2022-09-26] MEDS: DILTIAZEM HCL 30 MG TABLET GT SCH ×5 (00:11→23:00)
[2022-09-26 04:00] VITALS: BP 144/88
[2022-09-26] MEDS: TRAMADOL HCL 50 MG TABLET GT SCH ×3 (04:59→20:42)
[2022-09-26] MEDS: CEFEPIME 2 GM in IV D5W 100 ML IV SCH ×3 (04:59→21:33)
[2022-09-26 06:52] LABS: CALCIUM, SERUM 9.1 mg/dL (8.5-10.1); CREATININE 0.7 mg/dL (0.6-1.3); POTASSIUM 3.8 mmol/L (3.5-5.1)
[2022-09-26] MEDS: ACETYLCYSTEINE 10% SOLN 400 MG/4 ML VIAL NEB SCH ×3 (07:15→23:20)
--- NOTE | 2022-09-26 07:32 | NUR ---
COMPRESSOR STATION CHIEF ENGINEER OPENING NOTE PT IN BED ASLEEP, NON VERBAL, OPENS EYES, WITH SHILEY 7 TRACH TO MECHANICAL VENT WITH SETTINGS ORDERED AC 14 TV 450 FIO2 40% PEEP5, TOLERATING WELL, BREATHING EVEN AND UNLABORED. O2 SAT 100%, NO SIGNS OF PAIN/DISCOMFORT, SANDY MIDLINE IN PLACE, FLUSHES WELL. G TUBE FEEDING TWO TAMIKO HN @ 45ML/HR, TOLERATING WELL, CHECKED FOR PLACEMENT, NO RESIDUAL NOTED. CONKLIN CATH IN PLACE DRAINING YELLOW URINE BY GRAVITY. ALL SAFETY MEASURES IN PLACE: HOB UP X 30 DEG. BED LOCKED AND IN LOWEST POSITION, SIDE RAILS UP X2, CALL LIGHT WITHIN EASY REACH FOR HELP.PLAN OF CARE CONTINUE.
[2022-09-26 08:00] VITALS: BP 132/73
[2022-09-26] MEDS: Z GUARD REMEDY 4 OZ OINT TP SCH (08:32)
[2022-09-26] MEDS: CLOTRIMAZOLE 1% 15 GM TUBE TP SCH ×2 (08:32→20:24)
[2022-09-26] MEDS: VANCOMYCIN HCL 0.75 GM in IV D5W 250 ML IV SCH ×2 (08:53→20:23)
[2022-09-26] MEDS: PANTOPRAZOLE 40 MG/PACK PACK GT SCH (08:56)
[2022-09-26] MEDS: clonazePAM 1 MG TABLET GT SCH ×2 (08:56→20:42)
[2022-09-26] MEDS: QUETIAPINE FUMARATE 25 MG TABLET GT SCH (08:56)
[2022-09-26] MEDS: DOCUSATE SODIUM LIQ 100 MG/10 ML UDC GT SCH ×2 (08:56→16:43)
[2022-09-26] MEDS: METOPROLOL TARTRATE 25 MG TABLET GT SCH ×2 (08:57→16:43)
[2022-09-26] MEDS: ENOXAPARIN SODIUM 40 MG/0.4 ML DISP.SYRIN SQ SCH (11:24)
[2022-09-26 12:00] VITALS: BP 119/62
[2022-09-26 16:00] VITALS: BP 123/63
--- NOTE | 2022-09-26 18:12 | NUR ---
ANIMAL ATTENDANT NOTE PT IN BED ASLEEP, NON VERBAL, OPENS EYES, WITH SHILEY 7 TRACH TO MECHANICAL VENT WITH SETTINGS ORDERED AC 14 TV 450 FIO2 40% PEEP5, TOLERATING WELL, BREATHING EVEN AND UNLABORED. O2 SAT 100%, NO SIGNS OF PAIN/DISCOMFORT, SANDY MIDLINE AND MAX PIV NOTED PATENT AND INTACT, FLUSHES WELL, WITH NS RUNNING AT 75ML/HR. G TUBE FEEDING TWO TAMIKO HN @ 45ML/HR, TOLERATING WELL, CHECKED FOR PLACEMENT, NO RESIDUAL NOTED. CONKLIN CATH IN PLACE DRAINING YELLOW URINE BY GRAVITY. ON TELE MONITOR WITH READING SR 81. ALL SAFETY MEASURES IN PLACE: HOB UP X 30 DEG. BED LOCKED AND IN LOWEST POSITION, SIDE RAILS UP X2, CALL LIGHT WITHIN EASY REACH FOR HELP.PLAN OF CARE CONTINUE.
[2022-09-26 20:00] VITALS: BP 129/63
[2022-09-26] MEDS: IV NS 0.9% 1,000 ML IV PRN (20:46)
[2022-09-27] VITALS: BP 109/62
[2022-09-27 04:00] VITALS: BP 116/102
[2022-09-27] MEDS: CEFEPIME 2 GM in IV D5W 100 ML IV SCH ×3 (04:02→21:07)
[2022-09-27] MEDS: TRAMADOL HCL 50 MG TABLET GT SCH ×3 (04:07→21:05)
[2022-09-27] MEDS: TWOCAL HN 1,000 ML LIQUID GT PRN (04:50)
[2022-09-27] MEDS: DILTIAZEM HCL 30 MG TABLET GT SCH ×3 (05:03→17:23)
--- NOTE | 2022-09-27 06:00 | NUR ---
WHEN CLEANING PATIENT, NOTED PATIENT MOVED HIS HAND AND ACCIDENTALLY REMOVED GT, PLACED CONKLIN CATH TO MAKE SURE GT SITE WON'T CLOSE, JACKSON SWITCHMAN NOTIFIED, AWAITING FOR ORDERS. NO GT FEEDING RUNNING AT THIS MOMENT. WILL ENDORSE TO AM NURSE.
--- NOTE | 2022-09-27 06:08 | NUR ---
FLORAL ASSOCIATE CLOSING NOTE PT IN BED ASLEEP, NON VERBAL, OPENS EYES, WITH SHILEY 7 TRACH TO MECHANICAL VENT WITH SETTINGS ORDERED AC 14 TV 450 FIO2 40% PEEP5, TOLERATING WELL, BREATHING EVEN AND UNLABORED. O2 SAT 100%, NO SIGNS OF PAIN/DISCOMFORT, SANDY MIDLINE IN PLACE, FLUSHES WELL. CONKLIN CATH IN PLACE DRAINING YELLOW URINE BY GRAVITY. ALL SAFETY MEASURES IN PLACE: HOB UP X 30 DEG. BED LOCKED AND IN LOWEST POSITION, SIDE RAILS UP X2, CALL LIGHT WITHIN EASY REACH FOR HELP. WILL ENDORSE TO AM NURSE FOR HONG.
[2022-09-27 07:18] LABS: CALCIUM, SERUM 9.3 mg/dL (8.5-10.1); CREATININE 0.7 mg/dL (0.6-1.3); POTASSIUM 4.2 mmol/L (3.5-5.1)
--- NOTE | 2022-09-27 07:30 | NUR ---
SALON STYLIST OPENING NOTES Received pt awake in bed. Non verbal and unable to follow command. No signs of pain or discomfort at this time. Respirations are equal and unlabored with no SOB. Trach is patent, intact, and in midline position. Pt is on a ventilator on prescribed settings. GTF off d/t pt GT dislodged from previous shift awaiting call back from MD. IV access on MAX midline running IVF NS @ 75cc/hr. HOB elevated to 30-45 degrees. Siderails up at all times x2. Call light within reach. Will continue to monitor.
[2022-09-27 07:40] LABS: BASOPHILS % (AUTO) 0.2 % (0.0-2.0); EOSINOPHILS % (AUTO) 5.5 % (0.0-6.0); HEMATOCRIT 32 % (39-51); LYMPHOCYTES # (AUTO) 0.9 K/uL (0.8-4.8); LYMPHOCYTES % (AUTO) 10.5 % (20.0-44.0); MEAN CORPUSCULAR HGB CONC 31 g/dl (31.0-36.0); MEAN CORPUSCULAR VOLUME 83 fL (80-96); MONOCYTES # (AUTO) 0.8 K/uL (0.1-1.30); MONOCYTES % (AUTO) 10.3 % (2.0-12.0); NEUTROPHILS # (AUTO) 6.1 K/uL (1.8-8.9); NEUTROPHILS % (AUTO) 73.5 % (43.0-81.0); PLATELET COUNT (AUTO) 141 K/uL (150-450); RED BLOOD CELL COUNT(AUTO) 3.88 MIL/uL (4.5-6.0); WHITE BLOOD COUNT (AUTO) 8.2 K/uL (4.3-11.0)
[2022-09-27 08:00] VITALS: BP 122/63
[2022-09-27] MEDS: VANCOMYCIN HCL 0.75 GM in IV D5W 250 ML IV SCH ×2 (08:03→21:04)
[2022-09-27] MEDS: ACETYLCYSTEINE 10% SOLN 400 MG/4 ML VIAL NEB SCH ×2 (08:34→15:59)
[2022-09-27] MEDS: DOCUSATE SODIUM LIQ 100 MG/10 ML UDC GT SCH ×2 (09:00→17:00)
[2022-09-27] MEDS: PANTOPRAZOLE 40 MG/PACK PACK GT SCH (09:00)
[2022-09-27] MEDS: QUETIAPINE FUMARATE 25 MG TABLET GT SCH (09:00)
[2022-09-27] MEDS: METOPROLOL TARTRATE 25 MG TABLET GT SCH ×2 (09:00→17:00)
[2022-09-27] MEDS: clonazePAM 1 MG TABLET GT SCH ×2 (09:00→21:05)
[2022-09-27] MEDS: Z GUARD REMEDY 4 OZ OINT TP SCH (09:08)
[2022-09-27] MEDS: CLOTRIMAZOLE 1% 15 GM TUBE TP SCH ×2 (09:08→21:10)
--- NOTE | 2022-09-27 09:09 | NUR ---
PAYMENT SPECIALIST NOTES All due meds at 0900 not given d/t pt GT being dislodged. Awaiting call back from .
[2022-09-27] MEDS: ENOXAPARIN SODIUM 40 MG/0.4 ML DISP.SYRIN SQ SCH (11:09)
--- NOTE | 2022-09-27 11:25 | NUR ---
ETIQUETTE COACH NOTES Cardizem 30mg not given pending GT placement.
[2022-09-27 12:00] VITALS: BP 122/64
[2022-09-27 16:00] VITALS: BP 105/56
[2022-09-27] MEDS: IV NS 0.9% 1,000 ML IV PRN (17:24)
--- NOTE | 2022-09-27 18:26 | NUR ---
TITRATOR CLOSING NOTES Pt is awake in bed. Non verbal and unable to follow command. Pt is on a ventilator on prescribed settings tolerating it well. GTF currently off pending GT placement. IV access on MAX midline and SANDY SL patent and intact. HOB elevated to 30-45 degrees. Siderails up at all times. Will endorse to oncoming nurse.
[2022-09-27 20:00] VITALS: BP 104/76
--- NOTE | 2022-09-27 20:00 | NUR ---
TANNING DRUM OPERATOR OPENING NOTE PT IN BED, OBTUNDED, WITH SHILEY 7 TRACH TO MECHANICAL VENT WITH SETTINGS ORDERED AC 14 TV 450 FIO2 40% PEEP 5, TOLERATING WELL, BREATHING EVEN AND UNLABORED. O2 SAT 100%, NO SIGNS OF PAIN NOTED AT THIS TIME, ON TELE MONITOR ST HR 115, MAX MIDLINE IN PLACE, SANDY S/L 22G, BOTH INTACT AND PATENT. GTF ON HOLD BECAUSE G TUBE GOT DISLODGED, BUT F/C IN PLACE FOR THE MEAN TIME WHILE WAITING FOR MD TO REINSERT. F/C IN PLACE DRAINING CLEAR YELLOW URINE BY GRAVITY. ALL SAFETY MEASURES IN PLACE: BED LOCKED AND IN LOWEST POSITION, SIDE RAILS UP X3, CALL LIGHT WITHIN REACH FOR WILL CONTINUE TO MONITOR.
--- NOTE | 2022-09-27 20:30 | NUR ---
SUPERVISOR RIDES NOTE DR. KHAN CAME TO REPLACE DISLODGED GTUBE WITH FR 22. PATENT AND INTACT. RESUMED GTF @ 45 ML/HR, NO RESIDUAL NOTED. WILL CONTINUE TO MONITOR.
[2022-09-28] VITALS: BP 130/79
[2022-09-28] MEDS: DILTIAZEM HCL 30 MG TABLET GT SCH ×4 (00:03→17:31)
[2022-09-28] MEDS: ACETYLCYSTEINE 10% SOLN 400 MG/4 ML VIAL NEB SCH ×3 (00:06→15:31)
[2022-09-28 04:00] VITALS: BP 126/74
[2022-09-28] MEDS: CEFEPIME 2 GM in IV D5W 100 ML IV SCH ×2 (05:11→13:05)
[2022-09-28] MEDS: TRAMADOL HCL 50 MG TABLET GT SCH ×2 (05:12→13:05)
--- NOTE | 2022-09-28 07:20 | NUR ---
BASKET ASSEMBLER CLOSING NOTE PT IN BED, OBTUNDED, WITH SHILEY 7 TRACH TO MECHANICAL VENT WITH SETTINGS ORDERED AC 14 TV 450 FIO2 40% PEEP 5, TOLERATING WELL, BREATHING EVEN AND UNLABORED. O2 SAT 100%, NO SIGNS OF PAIN NOTED AT THIS TIME, ON TELE MONITOR ST HR 115, MAX MIDLINE IN PLACE, SANDY S/L 22G, BOTH INTACT AND PATENT. GTF RUNNING @ 45 ML/HR; NO RESIDUAL NOTED; F/C IN PLACE DRAINING CLEAR YELLOW URINE BY GRAVITY. ALL DUE MEDS WERE GIVEN AND NEEDS ATTENDED; ALL SAFETY MEASURES IN PLACE: BED LOCKED AND IN LOWEST POSITION, SIDE RAILS UP X3, CALL LIGHT WITHIN REACH; WILL ENDORSE TO ONCOMING NURSE FOR HONG.
[2022-09-28 07:55] LABS: CALCIUM, SERUM 9.4 mg/dL (8.5-10.1); CREATININE 0.8 mg/dL (0.6-1.3); POTASSIUM 4.4 mmol/L (3.5-5.1)
[2022-09-28 08:00] VITALS: BP 109/77
[2022-09-28] MEDS: PANTOPRAZOLE 40 MG/PACK PACK GT SCH (08:28)
[2022-09-28] MEDS: clonazePAM 1 MG TABLET GT SCH (08:28)
[2022-09-28] MEDS: QUETIAPINE FUMARATE 25 MG TABLET GT SCH (08:28)
[2022-09-28] MEDS: DOCUSATE SODIUM LIQ 100 MG/10 ML UDC GT SCH ×2 (08:28→17:32)
[2022-09-28] MEDS: METOPROLOL TARTRATE 25 MG TABLET GT SCH ×2 (08:29→17:32)
[2022-09-28] MEDS: CLOTRIMAZOLE 1% 15 GM TUBE TP SCH (09:19)
[2022-09-28] MEDS: Z GUARD REMEDY 4 OZ OINT TP SCH (09:20)
[2022-09-28] MEDS: VANCOMYCIN HCL 0.75 GM in IV D5W 250 ML IV SCH (09:45)
[2022-09-28] MEDS: IV NS 0.9% 1,000 ML IV PRN (10:01)
[2022-09-28] MEDS: ENOXAPARIN SODIUM 40 MG/0.4 ML DISP.SYRIN SQ SCH (11:58)
[2022-09-28 12:00] VITALS: BP 124/70
[2022-09-28] MEDS ORDERED: VANC1VIA34 XX (12:42)
[2022-09-28 16:00] VITALS: BP 119/65
[2022-09-28 17:32] VITALS: BP 119/65
--- NOTE | 2022-09-28 19:00 | NUR ---
SCREENING TECHNICIAN AND CLOSING NOTE PT IN BED, OBTUNDED, WITH SHILEY 7 TRACH TO MECHANICAL VENT WITH SETTINGS ORDERED AC 14 TV 450 FIO2 40% PEEP 5, TOLERATING WELL, BREATHING EVEN AND UNLABORED. O2 SAT 99%, NO SIGNS OF PAIN NOTED AT THIS TIME, ON TELE MONITOR ST HR 115, MAX MIDLINE IN PLACE, SANDY S/L 22G, BOTH INTACT AND PATENT. GTF RUNNING @ 45 ML/HR; NO RESIDUAL NOTED; F/C IN PLACE DRAINING CLEAR YELLOW URINE BY GRAVITY. ALL DUE MEDS WERE GIVEN AND NEEDS ATTENDED; ALL SAFETY MEASURES IN PLACE: BED LOCKED AND IN LOWEST POSITION, SIDE RAILS UP X3, CALL LIGHT WITHIN REACH; PATIENT DISCHARGE AMBULANCE WILL PICK THE PATIENT AT 1930 TO [place] [facility] REPORT GIVEN TO [facility] IN [place]. [facility] HAS 7 DAYS OF ABX VANCOMYCIN 1 MG. ALL DISCHARGE INSTRUCTION WILL BE GIVEN TO THE [facility] LINE COOK TO GIVE IT TO THE NURSE IN [place]. WILL ENDORSE TO ONCOMING NURSE FOR CARE AND DISCHARGE IF AMBULANCE DOES NOT COME ONCE I AM HERE.
--- NOTE | 2022-09-28 20:00 | NUR ---
RN NOTE PT DISCHARGED. REPORT GIVEN TO CAROLYN NICKERSON AT BEDSIDE, PT PICKED UP BY AMBULANCE [facility]. PT NOT IN ANY S/SX OF RESPIRATORY DISTRESS, V/S TAKEN AND RECORDED AT 97.8, 111, 21, 99%, 138/71.
== END 2022-09-29 | DRG 720 ==
LOC: ER 06:40 → TELE-TD 09:07 → TELE1 12:29
PROVIDERS: ADMIT Legal Medicine; ATTEND Legal Medicine
PROC: 5A1955Z Respiratory Ventilation, Greater than 96 Consecutive Hours (ICD-10-PCS; principal; 2022-09-21)
PROC: 05H633Z Insertion of Infusion Device into Left Subclavian Vein, Percutaneous Approach (ICD-10-PCS; 2022-09-22)
PROC: B547ZZA Ultrasonography of Left Subclavian Vein, Guidance (ICD-10-PCS; 2022-09-22)
DX: A41.9 Sepsis, unspecified organism (principal); J96.21 Acute and chronic respiratory failure with hypoxia; N17.0 Acute kidney failure with tubular necrosis; G92.8 Other toxic encephalopathy; R40.3 Persistent vegetative state; J15.6 Pneumonia due to other Gram-negative bacteria; J98.2 Interstitial emphysema; R53.2 Functional quadriplegia; D68.69 Other thrombophilia; B48.8 Other specified mycoses; D63.8 Anemia in other chronic diseases classified elsewhere; L89.610 Pressure ulcer of right heel, unstageable; G93.1 Anoxic brain damage, not elsewhere classified; N39.0 Urinary tract infection, site not specified; Z93.0 Tracheostomy status; Z20.822 Contact with and (suspected) exposure to COVID-19; R65.20 Severe sepsis without septic shock; R13.10 Dysphagia, unspecified; I10 Essential (primary) hypertension; J39.8 Other specified diseases of upper respiratory tract; J98.11 Atelectasis; Z86.73 Personal history of transient ischemic attack (TIA), and cerebral infarction without residual deficits; K21.9 Gastro-esophageal reflux disease without esophagitis; Z74.09 Other reduced mobility; T17.990A Other foreign object in respiratory tract, part unspecified in causing asphyxiation, initial encounter; X58.XXXA Exposure to other specified factors, initial encounter; Y93.9 Activity, unspecified; Y92.129 Unspecified place in nursing home as the place of occurrence of the external cause; F03.90 Unspecified dementia, unspecified severity, without behavioral disturbance, psychotic disturbance, mood disturbance, and anxiety; L03.311 Cellulitis of abdominal wall; K94.22 Gastrostomy infection; N20.0 Calculus of kidney; Z99.11 Dependence on respirator [ventilator] status; Z88.0 Allergy status to penicillin; L98.8 Other specified disorders of the skin and subcutaneous tissue
CPT/HCPCS: 31720; 36415; 71045-TC; 71250-TC; 80048-TC; 80076-TC; 80202-TC; 81001; 83605-TC; 83735-TC; 84484-TC; 85025-TC; 85730-TC; 87040-TC; 87081-TC; 87086-TC; 94002-TC; 94003-TC; 94760-TC; 94762-TC; 94799-TC; A4623; A6253; A6403; A7526; C9113; C9803; G0378; J0692; J1650; J2543; J2930; J3370; J3475; J7030; J7050; J7060

== ENCOUNTER 2023-03-25 15:52 | Inpatient (IN) | payer MEDICAID ==
[~2023-03-25] VITALS: Ht 172.7 cm; Wt 59.0 kg
[~2023-03-25 15:52] MED LIST: ACET-2605 GT; ACET650S26 GT; ALBU2.5V38 NEB; AMIN30LI2 GT; BACL10TA GT; BISA10SU11 RC; CHLO473M5 MM; CHOL100062 GT; CLON1TAB12 GT; COLL1POW2 TP; CRAN425C6 GT; DILT30TA14 GT; DOCU-141 GT; EPOE1VIA7 SQ; FERR220E2 GT; IBUP-1955 GT; LACT100027 GT; LEVE100S GT; MAGN400O6 GT; METO25TA20 GT; MULT9LIQ6 GT; NA P133E RC; POVI1MED TP; SODI1TAB66 GT; TRAM50TA2 GT; VIT500LI GT
[2023-03-25 17:15] LABS: BASOPHILS % (AUTO) 0.2 % (0.0-2.0); EOSINOPHILS # (AUTO) 0.2 K/uL (0.0-0.7); LYMPHOCYTES # (AUTO) 0.9 K/uL (0.8-4.8); LYMPHOCYTES % (AUTO) 9.7 % (20.0-44.0); MEAN CORPUSCULAR HEMOGLOBIN 26 PG (26.0-33.0); MEAN CORPUSCULAR HGB CONC 31 g/dl (31.0-36.0); MEAN CORPUSCULAR VOLUME 83 fL (80-96); MONOCYTES # (AUTO) 0.7 K/uL (0.1-1.30); MONOCYTES % (AUTO) 7.7 % (2.0-12.0); NEUTROPHILS # (AUTO) 7.1 K/uL (1.8-8.9); NEUTROPHILS % (AUTO) 80.4 % (43.0-81.0); PLATELET COUNT (AUTO) 171 K/uL (150-450); RED BLOOD CELL COUNT(AUTO) 2.25 MIL/uL (4.5-6.0); RED CELL DISTRIBUTION WIDTH 16.3 % (11.5-15.0); WHITE BLOOD COUNT (AUTO) 8.8 K/uL (4.3-11.0)
[2023-03-25 17:27] LABS: CALCIUM, SERUM 9.4 mg/dL (8.5-10.1); CARBON DIOXIDE 26 mmol/L (21-32); CHLORIDE 102 mmol/L (98-107); CREATININE 0.4 mg/dL (0.6-1.3); GLUCOSE 103 mg/dL (74-106); POTASSIUM 4.2 mmol/L (3.5-5.1); SODIUM SERUM 136 mmol/L (136-145); UREA NITROGEN, BLOOD 27 mg/dL (7-18)
[2023-03-25 17:29] LABS: HEMATOCRIT 19 % (39-51); HEMOGLOBIN 5.8 g/dL (13.5-17.5)
[2023-03-25 17:32] LABS: ALANINE AMINOTRANSFERASE 16 U/L (12-78); ALBUMIN 2.4 g/dL (3.4-5.0); ALKALINE PHOSPHATASE 52 U/L (46-116); ASPARTATE AMINOTRANSFERASE 9 U/L (15-37); BILIRUBIN,DIRECT 0.1 mg/dL (0.0-0.2); BILIRUBIN,TOTAL 0.3 mg/dL (0.2-1.0); LIPASE 36 U/L (73-393); TOTAL PROTEIN, SERUM 7.6 g/dL (6.4-8.2)
[2023-03-25] MEDS ORDERED: ONDA4VIA23 IV (18:10)
[2023-03-25] MEDS ORDERED: MORP4VIA IV (18:10)
[2023-03-25] MEDS ORDERED: LEVE500V2 IV (18:10)
[2023-03-25] MEDS ORDERED: INSU100V28 SQ (18:10)
[2023-03-25] MEDS ORDERED: ACETAMINOPHEN SUPP RC (18:10)
[2023-03-25] MEDS ORDERED: ALBU8.5H8 IH ×2 (18:10)
[2023-03-25] MEDS ORDERED: TPN IV (18:10)
[2023-03-25] MEDS ORDERED: ALLA266C2 TP (18:10)
[2023-03-25] MEDS ORDERED: ENOX40DI SQ (18:10)
[2023-03-25] MEDS ORDERED: LORA2VIA6 IV (18:10)
[2023-03-25] MEDS ORDERED: NALO0.4V2 IV (18:10)
[2023-03-25] MEDS ORDERED: DIPH50CA4 IV (18:10)
[2023-03-25] MEDS ORDERED: DEXTROSE 10% IV (18:10)
[2023-03-25] MEDS ORDERED: ACETAMINOPHEN 650 MG/SUPP.RECT RC ONE ×2 (18:29→18:30)
[2023-03-25 19:22] LABS: ANISOCYTOSIS 1+; EOSINOPHILS % (MANUAL) 2 % (0-4); LYMPHOCYTES % (MANUAL) 7 % (16-48); MONOCYTES % (MANUAL) 4 % (0-11.0); NEUTROPHILS % (MANUAL) 87 (42-76); PLATELET ESTIMATE ADEQUATE; ROULEAUX 1+; STOMATOCYTES 1+
[2023-03-25 19:23] LABS: HYPOCHROMASIA 1+
[2023-03-25 21:00] VITALS: BP 92/45; TEMP 100.5; O2SAT 96
[2023-03-25] MEDS ORDERED: TPN/PPN PER PHARMACY IV PRN (21:00)
[2023-03-25] MEDS ORDERED: ONDANSETRON HCL/PF 4 MG/2 ML VIAL IVP PRN (21:00)
[2023-03-25] MEDS ORDERED: MAG HYDROX/AL HYDROX/SIMETH 30 ML UDC PO PRN (21:00)
[2023-03-25] MEDS ORDERED: Z GUARD REMEDY 4 OZ OINT TP PRN (21:00)
[2023-03-25] MEDS: PANTOPRAZOLE 40 MG VIAL IV SCH (22:42)
[2023-03-25] MEDS ORDERED: LEVETIRACETAM (500MG) 500 MG/5 ML VIAL IV ONE (22:58)
[2023-03-25] MEDS: LEVETIRACETAM (500MG) 750 MG in IV NS 0.9% 100 ML IV SCH (23:29)
[2023-03-26] VITALS (8 sets, daily range): BP systolic 117–136; BP diastolic 62–72; TEMP 97.8–102.8; O2SAT 98–100
[2023-03-26] MEDS: MORPHINE SULFATE INJ 2 MG/ML DISP.SYRIN IV PRN (03:02)
[2023-03-26] MEDS: LORAZEPAM INJ 2 MG/ML VIAL IV PRN ×2 (04:00→16:39)
[2023-03-26] MEDS: ACETAMINOPHEN 650 MG/SUPP.RECT RC PRN ×3 (04:07→21:27)
[2023-03-26 07:25] LABS: BASOPHILS % (AUTO) 0.4 % (0.0-2.0); EOSINOPHILS % (AUTO) 0.3 % (0.0-6.0); HEMATOCRIT 24 % (39-51); HEMOGLOBIN 7.6 g/dL (13.5-17.5); LYMPHOCYTES # (AUTO) 0.3 K/uL (0.8-4.8); LYMPHOCYTES % (AUTO) 4.4 % (20.0-44.0); MEAN CORPUSCULAR HEMOGLOBIN 26 PG (26.0-33.0); MEAN CORPUSCULAR HGB CONC 32 g/dl (31.0-36.0); MEAN CORPUSCULAR VOLUME 82 fL (80-96); MONOCYTES # (AUTO) 0.5 K/uL (0.1-1.30); NEUTROPHILS # (AUTO) 5.9 K/uL (1.8-8.9); NEUTROPHILS % (AUTO) 86.9 % (43.0-81.0); PLATELET COUNT (AUTO) 159 K/uL (150-450); RED BLOOD CELL COUNT(AUTO) 2.94 MIL/uL (4.5-6.0); RED CELL DISTRIBUTION WIDTH 16.3 % (11.5-15.0); WHITE BLOOD COUNT (AUTO) 6.7 K/uL (4.3-11.0)
[2023-03-26 07:42] LABS: CALCIUM, SERUM 9.4 mg/dL (8.5-10.1); CREATININE 0.5 mg/dL (0.6-1.3); PHOSPHORUS 3.8 mg/dL (2.5-4.9)
[2023-03-26] MEDS ORDERED: DEXTROSE 50%-WATER 50 ML DISP.SYRIN IV PRN (09:00)
[2023-03-26] MEDS ORDERED: IV 10% DEXTROSE 1,000 ML IV PRN (09:00)
[2023-03-26] MEDS: LEVETIRACETAM (500MG) 750 MG in IV NS 0.9% 100 ML IV SCH ×2 (09:42→21:10)
[2023-03-26] MEDS: PANTOPRAZOLE 40 MG VIAL IV SCH ×2 (09:43→21:10)
[2023-03-26] MEDS ORDERED: TPN BAG #1 IV SCH ×4 (10:00)
[2023-03-26] MEDS: BLOOD SUGAR DIAGNOSTIC 1 EACH STRIP IN SCH ×2 (12:01→17:24)
[2023-03-26] MEDS: FAT EMULSION 20% 500 ML in PREMIX 1 EA IV SCH (13:30)
[2023-03-26] MEDS ORDERED: TPN BAG #2 IV SCH ×2 (22:00)
[2023-03-27] VITALS (10 sets, daily range): BP systolic 100–131; BP diastolic 54–68; TEMP 98.2–103.2; O2SAT 98–100
[2023-03-27] MEDS: BLOOD SUGAR DIAGNOSTIC 1 EACH STRIP IN SCH ×5 (01:10→23:19)
[2023-03-27] MEDS: MORPHINE SULFATE INJ 2 MG/ML DISP.SYRIN IV PRN (03:54)
[2023-03-27] MEDS ORDERED: CEFEPIME 1 GM VIAL ONE (05:20)
[2023-03-27] MEDS ORDERED: VANCOMYCIN 1 GM /D5W 250 ML PB IV ONE (05:24)
[2023-03-27] MEDS ORDERED: VANCOMYCIN 1 GM in IV D5W 250ml IV ONE (05:30)
[2023-03-27] MEDS: INSULIN REGULAR, HUMAN 100 UNIT/ML 3 ML VIAL SQ PRN ×3 (05:56→23:19)
[2023-03-27] MEDS: ACETAMINOPHEN 650 MG/SUPP.RECT RC PRN (05:59)
[2023-03-27] MEDS: CEFEPIME 1 GM in IV D5W 50 ML IV SCH ×2 (06:31→22:41)
[2023-03-27 07:17] LABS: BASOPHILS % (AUTO) 0.3 % (0.0-2.0); LYMPHOCYTES # (AUTO) 0.3 K/uL (0.8-4.8); LYMPHOCYTES % (AUTO) 5.2 % (20.0-44.0); MEAN CORPUSCULAR HEMOGLOBIN 26 PG (26.0-33.0); MEAN CORPUSCULAR HGB CONC 32 g/dl (31.0-36.0); MEAN CORPUSCULAR VOLUME 81 fL (80-96); MONOCYTES # (AUTO) 0.3 K/uL (0.1-1.30); MONOCYTES % (AUTO) 6.2 % (2.0-12.0); NEUTROPHILS # (AUTO) 4.5 K/uL (1.8-8.9); NEUTROPHILS % (AUTO) 88.3 % (43.0-81.0); PLATELET COUNT (AUTO) 125 K/uL (150-450); WHITE BLOOD COUNT (AUTO) 5.1 K/uL (4.3-11.0)
[2023-03-27 07:20] LABS: HEMOGLOBIN 6.5 g/dL (13.5-17.5)
[2023-03-27 07:21] LABS: HEMATOCRIT 20 % (39-51)
[2023-03-27 07:38] LABS: CALCIUM, SERUM 8.7 mg/dL (8.5-10.1); CREATININE 0.6 mg/dL (0.6-1.3); MAGNESIUM 1.4 mg/dL (1.8-2.4); PHOSPHORUS 2.7 mg/dL (2.5-4.9); POTASSIUM 3.6 mmol/L (3.5-5.1)
[2023-03-27] MEDS ORDERED: VANCOMYCIN 500 MG in IV D5W 100ml IV ONE (08:00)
[2023-03-27] MEDS ORDERED: TPN AMINO ACIDS IV SCH (09:00)
[2023-03-27] MEDS ORDERED: SODIUM CHLORIDE IV SCH (09:00)
[2023-03-27] MEDS ORDERED: TPN ADDITIVES IV SCH (09:00)
[2023-03-27] MEDS ORDERED: D10 IV SCH (09:00)
[2023-03-27] MEDS: LEVETIRACETAM (500MG) 750 MG in IV NS 0.9% 100 ML IV SCH ×2 (09:44→23:12)
[2023-03-27 09:46] LABS: ANISOCYTOSIS 1+; EOSINOPHILS % (MANUAL) 1 % (0-4); LYMPHOCYTES % (MANUAL) 6 % (16-48); MONOCYTES % (MANUAL) 6 % (0-11.0); NEUTROPHILS % (MANUAL) 87 (42-76); PLATELET ESTIMATE DECREASED
[2023-03-27 09:47] LABS: HYPOCHROMASIA 1+
[2023-03-27] MEDS: PANTOPRAZOLE 40 MG VIAL IV SCH ×2 (09:50→21:21)
[2023-03-27] MEDS ORDERED: TPN BAG #3 IV SCH ×3 (10:00)
[2023-03-27] MEDS: Magnesium 1GM/D5W 100ML PREMIX 100 ML IV SCH ×4 (11:49→18:12)
[2023-03-27] MEDS ORDERED: VANCOMYCIN 1 GM in IV D5W 250 ML IV SCH (17:00)
[2023-03-27] MEDS ORDERED: POTASSIUM PHOSPHATE MM 7.5 MMOL in IV NS 0.9% 100 ML IV SCH (18:00)
[2023-03-27] MEDS ORDERED: Magnesium 1GM/D5W 100ML PREMIX 100 ML IV SCH (21:00)
[2023-03-27] MEDS ORDERED: TPN BAG #4 IV SCH ×3 (22:00)
[2023-03-27] MEDS: VANCOMYCIN 1 GM in IV D5W 250 ML IV SCH (23:35)
[2023-03-28] VITALS: BP 123/81; TEMP 82; TEMP 98.2; O2SAT 100
[2023-03-28 04:00] VITALS: BP 119/67; TEMP 98.6; O2SAT 100
[2023-03-28] MEDS: BLOOD SUGAR DIAGNOSTIC 1 EACH STRIP IN SCH ×3 (05:06→17:36)
[2023-03-28] MEDS: INSULIN REGULAR, HUMAN 100 UNIT/ML 3 ML VIAL SQ PRN ×3 (05:07→17:36)
[2023-03-28 07:35] LABS: BASOPHILS % (AUTO) 0.3 % (0.0-2.0); EOSINOPHILS % (AUTO) 0.6 % (0.0-6.0); HEMATOCRIT 24 % (39-51); HEMOGLOBIN 7.6 g/dL (13.5-17.5); LYMPHOCYTES # (AUTO) 0.4 K/uL (0.8-4.8); LYMPHOCYTES % (AUTO) 12.3 % (20.0-44.0); MEAN CORPUSCULAR HEMOGLOBIN 26 PG (26.0-33.0); MEAN CORPUSCULAR HGB CONC 31 g/dl (31.0-36.0); MEAN CORPUSCULAR VOLUME 84 fL (80-96); MONOCYTES # (AUTO) 0.4 K/uL (0.1-1.30); MONOCYTES % (AUTO) 13.4 % (2.0-12.0); NEUTROPHILS # (AUTO) 2.2 K/uL (1.8-8.9); NEUTROPHILS % (AUTO) 73.4 % (43.0-81.0); PLATELET COUNT (AUTO) 86 K/uL (150-450); RED CELL DISTRIBUTION WIDTH 15.9 % (11.5-15.0)
[2023-03-28 08:00] VITALS: BP 128/72; TEMP 98.2; O2SAT 99
[2023-03-28 08:11] LABS: CALCIUM, SERUM 8.6 mg/dL (8.5-10.1); CREATININE 0.5 mg/dL (0.6-1.3); MAGNESIUM 2.1 mg/dL (1.8-2.4); PHOSPHORUS 2.7 mg/dL (2.5-4.9); POTASSIUM 3.9 mmol/L (3.5-5.1)
[2023-03-28] MEDS: PANTOPRAZOLE 40 MG VIAL IV SCH ×2 (08:51→22:00)
[2023-03-28] MEDS: CEFEPIME 1 GM in IV D5W 50 ML IV SCH ×2 (08:52→22:00)
[2023-03-28] MEDS: LEVETIRACETAM (500MG) 750 MG in IV NS 0.9% 100 ML IV SCH ×2 (09:30→22:00)
[2023-03-28] MEDS ORDERED: TPN BAG #5 IV SCH ×3 (10:00)
[2023-03-28] MEDS: VANCOMYCIN 1 GM in IV D5W 250 ML IV SCH ×2 (10:25→23:16)
[2023-03-28 12:00] VITALS: BP 111/56; TEMP 98.2; O2SAT 98
[2023-03-28 13:26] LABS: ANISOCYTOSIS 1+; BASOPHILS % (MANUAL) 0 % (0.0-2.0); EOSINOPHILS % (MANUAL) 0 % (0-4); LYMPHOCYTES % (MANUAL) 11 % (16-48); MONOCYTES % (MANUAL) 13 % (0-11.0); NEUTROPHILS % (MANUAL) 76 (42-76); PLATELET ESTIMATE DECREASED
[2023-03-28] MEDS: FAT EMULSION 20% 500 ML in PREMIX 1 EA IV SCH (14:16)
[2023-03-28 16:00] VITALS: BP 130/63; TEMP 99.8; O2SAT 100
[2023-03-28 20:00] VITALS: BP 123/64; TEMP 99; O2SAT 100
[2023-03-28] MEDS ORDERED: TPN BAG #6 IV SCH ×4 (22:00)
[2023-03-29] VITALS: BP 128/66; TEMP 98.7; O2SAT 100
[2023-03-29] MEDS: BLOOD SUGAR DIAGNOSTIC 1 EACH STRIP IN SCH ×4 (00:11→17:27)
[2023-03-29 04:00] VITALS: BP 122/54; TEMP 99.2; O2SAT 100
[2023-03-29 07:11] LABS: BASOPHILS % (AUTO) 0.7 % (0.0-2.0); EOSINOPHILS # (AUTO) 0.1 K/uL (0.0-0.7); EOSINOPHILS % (AUTO) 4.5 % (0.0-6.0); HEMATOCRIT 23 % (39-51); HEMOGLOBIN 7.1 g/dL (13.5-17.5); LYMPHOCYTES # (AUTO) 0.4 K/uL (0.8-4.8); LYMPHOCYTES % (AUTO) 16.4 % (20.0-44.0); MEAN CORPUSCULAR HEMOGLOBIN 26 PG (26.0-33.0); MEAN CORPUSCULAR HGB CONC 32 g/dl (31.0-36.0); MEAN CORPUSCULAR VOLUME 83 fL (80-96); MONOCYTES # (AUTO) 0.4 K/uL (0.1-1.30); MONOCYTES % (AUTO) 14.5 % (2.0-12.0); NEUTROPHILS # (AUTO) 1.7 K/uL (1.8-8.9); NEUTROPHILS % (AUTO) 63.9 % (43.0-81.0); PLATELET COUNT (AUTO) 90 K/uL (150-450); RED BLOOD CELL COUNT(AUTO) 2.74 MIL/uL (4.5-6.0); RED CELL DISTRIBUTION WIDTH 16.3 % (11.5-15.0); WHITE BLOOD COUNT (AUTO) 2.7 K/uL (4.3-11.0)
[2023-03-29 07:29] LABS: CALCIUM, SERUM 9.1 mg/dL (8.5-10.1); CREATININE 0.5 mg/dL (0.6-1.3); MAGNESIUM 1.8 mg/dL (1.8-2.4); PHOSPHORUS 2.8 mg/dL (2.5-4.9); POTASSIUM 3.2 mmol/L (3.5-5.1)
[2023-03-29 08:00] VITALS: BP 140/70; TEMP 98.8; O2SAT 100
[2023-03-29] MEDS: CEFEPIME 1 GM in IV D5W 50 ML IV SCH (08:52)
[2023-03-29] MEDS: PANTOPRAZOLE 40 MG VIAL IV SCH ×2 (09:23→20:15)
[2023-03-29] MEDS ORDERED: TPN BAG #7 IV SCH ×4 (10:00)
[2023-03-29] MEDS: LEVETIRACETAM (500MG) 750 MG in IV NS 0.9% 100 ML IV SCH ×2 (10:05→21:10)
[2023-03-29 10:40] LABS: EOSINOPHILS % (MANUAL) 3 % (0-4); LYMPHOCYTES % (MANUAL) 20 % (16-48); MONOCYTES % (MANUAL) 11 % (0-11.0); NEUTROPHILS % (MANUAL) 66 (42-76); PLATELET ESTIMATE DECREASED
[2023-03-29 10:41] LABS: ANISOCYTOSIS 1+; HYPOCHROMASIA 1+
[2023-03-29] MEDS: VANCOMYCIN 1 GM in IV D5W 250 ML IV SCH ×2 (11:17→21:58)
[2023-03-29 12:00] VITALS: BP 141/71; TEMP 98.6; O2SAT 100
[2023-03-29] MEDS: POTASSIUM CL. PREMIX PERIPHER. 50 ML IV SCH ×4 (12:09→14:51)
[2023-03-29 16:00] VITALS: BP 144/70; TEMP 98.4; O2SAT 100
[2023-03-29 17:02] LABS: INR 1.09 (0.91-1.10); PARTIAL THROMBOPLASTIN TIME 30.5 SEC (24.3-34.3); PROTHROMBIN TIME 11.4 SECS (9.2-11.1)
[2023-03-29] MEDS ORDERED: Magnesium 1GM/D5W 100ML PREMIX 100 ML IV SCH (18:00)
[2023-03-29 20:00] VITALS: BP 150/64; TEMP 98.7; O2SAT 100
[2023-03-29] MEDS: CEFEPIME 2 GM in IV D5W 100 ML IV SCH (20:11)
[2023-03-29] MEDS ORDERED: TPN BAG #8 IV SCH ×4 (22:00)
[2023-03-30] VITALS: BP 131/57; TEMP 98.4; O2SAT 100
[2023-03-30] MEDS: INSULIN REGULAR, HUMAN 100 UNIT/ML 3 ML VIAL SQ PRN ×2 (00:34→05:29)
[2023-03-30] MEDS: BLOOD SUGAR DIAGNOSTIC 1 EACH STRIP IN SCH ×4 (00:34→17:27)
[2023-03-30 04:00] VITALS: BP 142/58; TEMP 98.2; O2SAT 100
[2023-03-30 07:04] LABS: BASOPHILS % (AUTO) 0.9 % (0.0-2.0); EOSINOPHILS # (AUTO) 0.2 K/uL (0.0-0.7); EOSINOPHILS % (AUTO) 7.1 % (0.0-6.0); HEMATOCRIT 22 % (39-51); HEMOGLOBIN 7.1 g/dL (13.5-17.5); LYMPHOCYTES # (AUTO) 0.5 K/uL (0.8-4.8); LYMPHOCYTES % (AUTO) 18.3 % (20.0-44.0); MEAN CORPUSCULAR HEMOGLOBIN 26 PG (26.0-33.0); MEAN CORPUSCULAR HGB CONC 32 g/dl (31.0-36.0); MEAN CORPUSCULAR VOLUME 81 fL (80-96); MONOCYTES # (AUTO) 0.3 K/uL (0.1-1.30); MONOCYTES % (AUTO) 11.5 % (2.0-12.0); NEUTROPHILS # (AUTO) 1.7 K/uL (1.8-8.9); NEUTROPHILS % (AUTO) 62.2 % (43.0-81.0); PLATELET COUNT (AUTO) 91 K/uL (150-450); RED BLOOD CELL COUNT(AUTO) 2.75 MIL/uL (4.5-6.0); RED CELL DISTRIBUTION WIDTH 16.1 % (11.5-15.0); WHITE BLOOD COUNT (AUTO) 2.8 K/uL (4.3-11.0)
[2023-03-30 07:11] LABS: CALCIUM, SERUM 9.1 mg/dL (8.5-10.1); CREATININE 0.5 mg/dL (0.6-1.3); MAGNESIUM 1.9 mg/dL (1.8-2.4); PHOSPHORUS 2.5 mg/dL (2.5-4.9); POTASSIUM 2.9 mmol/L (3.5-5.1)
[2023-03-30 08:00] VITALS: BP 116/56; TEMP 98.2; O2SAT 100
[2023-03-30] MEDS ORDERED: TPN BAG #9 IV SCH ×3 (08:00)
[2023-03-30] MEDS: PANTOPRAZOLE 40 MG VIAL IV SCH ×2 (08:03→20:54)
[2023-03-30] MEDS: CEFEPIME 2 GM in IV D5W 100 ML IV SCH ×2 (08:04→20:42)
[2023-03-30 08:28] LABS: OCCULT BLOOD STOOL POSITIVE (NEGATIVE)
[2023-03-30] MEDS: LEVETIRACETAM (500MG) 750 MG in IV NS 0.9% 100 ML IV SCH ×2 (09:05→21:34)
[2023-03-30] MEDS: VANCOMYCIN 1 GM in IV D5W 250 ML IV SCH ×2 (09:43→23:41)
[2023-03-30] MEDS: POTASSIUM CL. PREMIX PERIPHER. 50 ML IV SCH ×6 (10:53→16:50)
[2023-03-30 12:00] VITALS: BP 116/80; TEMP 98.4; O2SAT 100
[2023-03-30 12:29] LABS: PLATELET ESTIMATE DECREASED
[2023-03-30 12:30] LABS: ANISOCYTOSIS 1+
[2023-03-30] MEDS: FAT EMULSION 20% 500 ML in PREMIX 1 EA IV SCH (14:32)
[2023-03-30 16:00] VITALS: BP 122/81; TEMP 98.4; O2SAT 100
[2023-03-30] MEDS ORDERED: [UNRECOGNIZED DRUG - NUTRITION] IV SCH ×4 (18:00)
[2023-03-30 20:00] VITALS: BP 112/53; TEMP 98; O2SAT 100
[2023-03-30] MEDS ORDERED: POTASSIUM CL. PREMIX PERIPHER. 50 ML IV SCH (21:00)
[2023-03-30] MEDS ORDERED: Magnesium 1GM/D5W 100ML PREMIX 100 ML IV SCH (22:00)
[2023-03-31] VITALS (10 sets, daily range): BP systolic 106–156; BP diastolic 42–63; TEMP 97.5–99; O2SAT 98–100
[2023-03-31] MEDS: BLOOD SUGAR DIAGNOSTIC 1 EACH STRIP IN SCH ×4 (00:29→17:33)
[2023-03-31] MEDS: INSULIN REGULAR, HUMAN 100 UNIT/ML 3 ML VIAL SQ PRN ×2 (00:29→06:06)
[2023-03-31] MEDS ORDERED: TPN BAG #11 IV SCH ×2 (04:00)
[2023-03-31 07:13] LABS: CALCIUM, SERUM 8.6 mg/dL (8.5-10.1); CREATININE 0.4 mg/dL (0.6-1.3); MAGNESIUM 1.8 mg/dL (1.8-2.4); PHOSPHORUS 1.7 mg/dL (2.5-4.9); POTASSIUM 3.3 mmol/L (3.5-5.1)
[2023-03-31] MEDS ORDERED: POTASSIUM PHOSPHATE MM 7.5 MMOL in IV NS 0.9% 100 ML IV SCH (08:00)
[2023-03-31] MEDS: PANTOPRAZOLE 40 MG VIAL IV SCH ×2 (08:04→21:03)
[2023-03-31] MEDS: CEFEPIME 2 GM in IV D5W 100 ML IV SCH ×2 (08:04→21:43)
[2023-03-31 08:16] LABS: BASOPHILS % (AUTO) 0.5 % (0.0-2.0); EOSINOPHILS # (AUTO) 0.3 K/uL (0.0-0.7); EOSINOPHILS % (AUTO) 7.7 % (0.0-6.0); HEMATOCRIT 22 % (39-51); LYMPHOCYTES # (AUTO) 0.7 K/uL (0.8-4.8); LYMPHOCYTES % (AUTO) 17.9 % (20.0-44.0); MEAN CORPUSCULAR HEMOGLOBIN 26 PG (26.0-33.0); MEAN CORPUSCULAR HGB CONC 32 g/dl (31.0-36.0); MEAN CORPUSCULAR VOLUME 81 fL (80-96); MONOCYTES # (AUTO) 0.4 K/uL (0.1-1.30); MONOCYTES % (AUTO) 9.5 % (2.0-12.0); NEUTROPHILS # (AUTO) 2.4 K/uL (1.8-8.9); NEUTROPHILS % (AUTO) 64.4 % (43.0-81.0); PLATELET COUNT (AUTO) 98 K/uL (150-450); RED BLOOD CELL COUNT(AUTO) 2.67 MIL/uL (4.5-6.0); WHITE BLOOD COUNT (AUTO) 3.7 K/uL (4.3-11.0)
[2023-03-31 08:18] LABS: HEMOGLOBIN 6.9 g/dL (13.5-17.5)
[2023-03-31] MEDS: LEVETIRACETAM (500MG) 750 MG in IV NS 0.9% 100 ML IV SCH ×2 (09:09→21:02)
[2023-03-31] MEDS: VANCOMYCIN 1 GM in IV D5W 250 ML IV SCH ×2 (10:02→22:50)
[2023-03-31 13:30] LABS: BASOPHILS % (MANUAL) 0 % (0.0-2.0); EOSINOPHILS % (MANUAL) 6 % (0-4); LYMPHOCYTES % (MANUAL) 16 % (16-48); MONOCYTES % (MANUAL) 10 % (0-11.0); NEUTROPHILS % (MANUAL) 68 (42-76)
[2023-03-31 13:31] LABS: ANISOCYTOSIS 1+; PLATELET ESTIMATE DECREASED
[2023-03-31] MEDS: POTASSIUM PHOSPHATE MM 7.5 MMOL in IV NS 0.9% 100 ML IV SCH ×2 (13:59→17:44)
[2023-03-31] MEDS ORDERED: TPN BAG #12 IV SCH ×4 (14:00)
[2023-03-31] MEDS: Magnesium 1GM/D5W 100ML PREMIX 100 ML IV SCH ×2 (20:54→21:58)
[2023-03-31] MEDS: POTASSIUM CL. PREMIX PERIPHER. 50 ML IV SCH ×2 (20:54→22:01)
[2023-04-01] VITALS: BP 137/88; TEMP 98.2; O2SAT 98
[2023-04-01] MEDS ORDERED: TPN BAG #13 IV SCH ×2
[2023-04-01 04:00] VITALS: BP 144/56; TEMP 98.1; O2SAT 99
[2023-04-01 05:44] LABS: BASOPHILS # (AUTO) 0.2 K/uL (0.0-0.2); BASOPHILS % (AUTO) 3.9 % (0.0-2.0); EOSINOPHILS # (AUTO) 0.2 K/uL (0.0-0.7); EOSINOPHILS % (AUTO) 4.3 % (0.0-6.0); HEMATOCRIT 28 % (39-51); HEMOGLOBIN 8.9 g/dL (13.5-17.5); LYMPHOCYTES # (AUTO) 0.6 K/uL (0.8-4.8); MEAN CORPUSCULAR HEMOGLOBIN 27 PG (26.0-33.0); MEAN CORPUSCULAR HGB CONC 32 g/dl (31.0-36.0); MEAN CORPUSCULAR VOLUME 84 fL (80-96); MONOCYTES # (AUTO) 0.4 K/uL (0.1-1.30); MONOCYTES % (AUTO) 7.7 % (2.0-12.0); NEUTROPHILS # (AUTO) 3.7 K/uL (1.8-8.9); NEUTROPHILS % (AUTO) 72.1 % (43.0-81.0); PLATELET COUNT (AUTO) 107 K/uL (150-450); RED BLOOD CELL COUNT(AUTO) 3.37 MIL/uL (4.5-6.0); RED CELL DISTRIBUTION WIDTH 16.6 % (11.5-15.0); WHITE BLOOD COUNT (AUTO) 5.1 K/uL (4.3-11.0)
[2023-04-01 06:00] LABS: CREATININE 0.4 mg/dL (0.6-1.3); MAGNESIUM 2.5 mg/dL (1.8-2.4); PHOSPHORUS 2.8 mg/dL (2.5-4.9); POTASSIUM 3.6 mmol/L (3.5-5.1)
[2023-04-01] MEDS: BLOOD SUGAR DIAGNOSTIC 1 EACH STRIP IN SCH ×4 (06:00→18:25)
[2023-04-01 08:00] VITALS: BP 133/55; TEMP 98.3; O2SAT 100
[2023-04-01] MEDS: PANTOPRAZOLE 40 MG VIAL IV SCH ×2 (08:06→22:27)
[2023-04-01] MEDS: CEFEPIME 2 GM in IV D5W 100 ML IV SCH ×2 (08:06→22:04)
[2023-04-01] MEDS: LEVETIRACETAM (500MG) 750 MG in IV NS 0.9% 100 ML IV SCH ×2 (08:47→22:04)
[2023-04-01] MEDS: VANCOMYCIN 1 GM in IV D5W 250 ML IV SCH ×2 (09:06→22:26)
[2023-04-01] MEDS ORDERED: TPN BAG #14 IV SCH ×4 (10:00)
[2023-04-01] MEDS: INSULIN REGULAR, HUMAN 100 UNIT/ML 3 ML VIAL SQ PRN (11:58)
[2023-04-01 12:00] VITALS: BP_SYST 128; BP_SYST 138; BP_DIAS 56; BP_DIAS 60; TEMP 98; TEMP 98.3; O2SAT 100; O2SAT 99
[2023-04-01] MEDS: FAT EMULSION 20% 500 ML in PREMIX 1 EA IV SCH (13:08)
[2023-04-01 16:00] VITALS: BP 138/82; TEMP 98.7; O2SAT 99
[2023-04-01 20:00] VITALS: BP 140/72; TEMP 98; O2SAT 99
[2023-04-01] MEDS ORDERED: TPN IV SCH ×4 (20:00)
[2023-04-02] MEDS: BLOOD SUGAR DIAGNOSTIC 1 EACH STRIP IN SCH ×3 (00:26→12:31)
[2023-04-02 00:29] VITALS: BP 137/86; TEMP 98.7; O2SAT 98
[2023-04-02 04:00] VITALS: BP 136/76; TEMP 98; O2SAT 95
[2023-04-02] MEDS ORDERED: TPN BAG #16 IV SCH ×2 (06:00)
[2023-04-02 06:18] LABS: BASOPHILS % (AUTO) 0.5 % (0.0-2.0); EOSINOPHILS # (AUTO) 0.3 K/uL (0.0-0.7); EOSINOPHILS % (AUTO) 4.5 % (0.0-6.0); HEMATOCRIT 27 % (39-51); HEMOGLOBIN 8.7 g/dL (13.5-17.5); LYMPHOCYTES # (AUTO) 0.9 K/uL (0.8-4.8); MEAN CORPUSCULAR HEMOGLOBIN 27 PG (26.0-33.0); MEAN CORPUSCULAR HGB CONC 33 g/dl (31.0-36.0); MEAN CORPUSCULAR VOLUME 82 fL (80-96); MONOCYTES # (AUTO) 0.5 K/uL (0.1-1.30); MONOCYTES % (AUTO) 7.4 % (2.0-12.0); NEUTROPHILS # (AUTO) 4.6 K/uL (1.8-8.9); NEUTROPHILS % (AUTO) 73.6 % (43.0-81.0); PLATELET COUNT (AUTO) 100 K/uL (150-450); RED BLOOD CELL COUNT(AUTO) 3.25 MIL/uL (4.5-6.0); RED CELL DISTRIBUTION WIDTH 16.6 % (11.5-15.0); WHITE BLOOD COUNT (AUTO) 6.3 K/uL (4.3-11.0)
[2023-04-02 07:00] LABS: CALCIUM, SERUM 8.6 mg/dL (8.5-10.1); CREATININE 0.5 mg/dL (0.6-1.3); MAGNESIUM 1.7 mg/dL (1.8-2.4); PHOSPHORUS 2.4 mg/dL (2.5-4.9)
[2023-04-02 07:34] LABS: POTASSIUM 2.8 mmol/L (3.5-5.1)
[2023-04-02 08:00] VITALS: BP 112/72; TEMP 99.1; O2SAT 100
[2023-04-02] MEDS ORDERED: Magnesium 1GM/D5W 100ML PREMIX 100 ML IV SCH (08:00)
[2023-04-02] MEDS: POTASSIUM CL. PREMIX PERIPHER. 50 ML IV SCH ×5 (08:43→13:55)
[2023-04-02] MEDS: CEFEPIME 2 GM in IV D5W 100 ML IV SCH (08:43)
[2023-04-02] MEDS: LEVETIRACETAM (500MG) 750 MG in IV NS 0.9% 100 ML IV SCH (08:43)
[2023-04-02] MEDS: PANTOPRAZOLE 40 MG VIAL IV SCH (08:44)
[2023-04-02] MEDS ORDERED: [UNRECOGNIZED DRUG - CODE] IV (09:46)
[2023-04-02] MEDS ORDERED: CEFE1FRO IV ×2 (09:46→09:52)
[2023-04-02] MEDS: POTASSIUM PHOSPHATE MM 7.5 MMOL in IV NS 0.9% 100 ML IV SCH ×2 (09:47→12:51)
[2023-04-02] MEDS: VANCOMYCIN 1 GM in IV D5W 250 ML IV SCH (10:05)
[2023-04-02 12:00] VITALS: BP 112/72; TEMP 99.1; O2SAT 100
[2023-04-02] MEDS: INSULIN REGULAR, HUMAN 100 UNIT/ML 3 ML VIAL SQ PRN (12:31)
[2023-04-02] MEDS ORDERED: TPN BAG #17 IV SCH ×4 (16:00)
[2023-04-03] MEDS ORDERED: TPN IV SCH ×4 (02:00)
== END 2023-04-02 16:20 | DRG 241 ==
LOC: ER 15:56 → TELE1 20:36
PROVIDERS: ADMIT Nurse Practitioner Acute Care; ATTEND Internal Medicine
PROC: 5A1955Z Respiratory Ventilation, Greater than 96 Consecutive Hours (ICD-10-PCS; principal; 2023-03-25)
PROC: 30233N1 Transfusion of Nonautologous Red Blood Cells into Peripheral Vein, Percutaneous Approach (ICD-10-PCS; 2023-03-25)
PROC: 0DB68ZX Excision of Stomach, Via Natural or Artificial Opening Endoscopic, Diagnostic (ICD-10-PCS; 2023-03-29)
DX: K26.4 Chronic or unspecified duodenal ulcer with hemorrhage (principal); J96.20 Acute and chronic respiratory failure, unspecified whether with hypoxia or hypercapnia; G93.41 Metabolic encephalopathy; E43 Unspecified severe protein-calorie malnutrition; L89.153 Pressure ulcer of sacral region, stage 3; J15.6 Pneumonia due to other Gram-negative bacteria; K31.6 Fistula of stomach and duodenum; L89.323 Pressure ulcer of left buttock, stage 3; K94.22 Gastrostomy infection; D69.6 Thrombocytopenia, unspecified; R53.2 Functional quadriplegia; Z99.11 Dependence on respirator [ventilator] status; L03.311 Cellulitis of abdominal wall; D62 Acute posthemorrhagic anemia; E11.9 Type 2 diabetes mellitus without complications; E88.09 Other disorders of plasma-protein metabolism, not elsewhere classified; G40.909 Epilepsy, unspecified, not intractable, without status epilepticus; K29.70 Gastritis, unspecified, without bleeding; K21.9 Gastro-esophageal reflux disease without esophagitis; K29.80 Duodenitis without bleeding; R13.10 Dysphagia, unspecified; Z87.442 Personal history of urinary calculi; Z88.0 Allergy status to penicillin; Z86.73 Personal history of transient ischemic attack (TIA), and cerebral infarction without residual deficits; Z20.822 Contact with and (suspected) exposure to COVID-19; F01.50 Vascular dementia, unspecified severity, without behavioral disturbance, psychotic disturbance, mood disturbance, and anxiety; I10 Essential (primary) hypertension; Z74.01 Bed confinement status; Z79.4 Long term (current) use of insulin; Z93.0 Tracheostomy status; F09 Unspecified mental disorder due to known physiological condition; Z68.1 Body mass index [BMI] 19.9 or less, adult; J98.11 Atelectasis; D63.8 Anemia in other chronic diseases classified elsewhere; N13.2 Hydronephrosis with renal and ureteral calculous obstruction
CPT/HCPCS: 31720; 36415; 71045-TC; 80048-TC; 80076-TC; 80202-TC; 82272-TC; 82962-TC; 83690-TC; 83735-TC; 84100-TC; 84478-TC; 84484-TC; 85025-TC; 85730-TC; 86850-TC; 87040-TC; 87081-TC; 88305-TC; 88313-TC; 88342; 94002-TC; 94003-TC; 94760-TC; 94762-TC; 94799-TC; 99082-TC; A4216; A4223; A4349; A4623; A7526; C9113; G0378; J0692; J1815; J1953; J2060; J2270; J2704; J3370; J3475; J3480; J3490; J7030; J7040; J7050; J7060; P9016